=== PATIENT | male | born 1960 | race Caucasian/White ===

== ENCOUNTER 2024-05-26 14:22 | Outpatient (CLI) | payer BC, SELFPAY ==
--- NOTE | 2024-05-26 15:00 | CRLHL7_ITS ---
For Patients: As a result of the Century Cures Act, medical imaging exams and procedure reports are released immediately into your electronic medical record. You may view this report before your referring provider. If you have questions, please contact your health care provider. Indication: Obstruction. Frequent sinusitis. Headaches. Technique: Noncontrast axial CT of the paranasal sinuses with coronal reformats are provided. No comparisons. Findings: The visualized paranasal sinuses are clear. The ostiomeatal complexes are patent bilaterally. Prominent left-sided lev bullosa. The visualized intraorbital contents appear within normal limits. Moderate rightward nasal septal deviation with small bony spur contacting the right inferior turbinate. Impression: 1. Moderate rightward nasal septal deviation with bony spur contacting the inferior right turbinate. 2. Otherwise, unremarkable CT of the paranasal sinuses. Please note that all CT scans at this facility use dose modulation, iterative reconstruction, and/or weight-based dosing when appropriate to reduce radiation dose to as low as reasonably achievable. Dictated by Bret Cast MD @ 05/26/2024 4:52:31 PM (Electronically Signed)
== END 2024-05-26 14:23 | disposition home or self-care (01) ==
LOC: CT 14:22
PROVIDERS: PCP Nurse Practitioner Family; Visit Provider Otolaryngology
DX: J32.9 Chronic sinusitis, unspecified (principal); J34.2 Deviated nasal septum; R51.9 Headache, unspecified
CPT/HCPCS: 70486

== ENCOUNTER 2024-07-22 09:21 | Day surgery (SDC) | payer BC, SELFPAY ==
[2024-07-22] VITALS (13 sets, daily range): BP systolic 101–138; BP diastolic 60–82; PULSE 89–98; RESP 16; TEMP 36.3–36.6; O2SAT 90–97; BMI 31.5
[2024-07-22] MEDS: SODIUM CHLORIDE 0.9 % (FLUSH) 10 ML SYRINGE IVF (10:10)
[2024-07-22] MEDS: OXYMETAZOLINE 0.05% NASAL SPRAY 2 SPRAY NOSTRIL-B (10:13)
--- NOTE | 2024-07-22 10:42 | W.ANESCHARGE ---
Anesthesia Charges Start Date/Time Anesthesia Start Date: 07/22/24 Anesthesia Start Time: 10:55 Stop Date/Time Anesthesia Stop Date: 07/22/24 Anesthesia Stop Time: 11:36
[2024-07-22] MEDS: LACTATED RINGERS 500 ML 500 ML IV (11:00)
[2024-07-22] MEDS: COCAINE HCL 4 % 4 ML SOLUTION NOSTRIL-B (11:05)
[2024-07-22] MEDS: BUPIVACAINE 0.5%/EPINEPHRINE 0.9 MG (30.9 ML) INJECTION (11:19)
[2024-07-22] MEDS: MUPIROCIN 1 GM PACKET 1 APPLIC TOPICAL (11:20)
[2024-07-22] MEDS: AYR SALINE NASAL GEL 1 APPLIC NOSTRIL-B (11:20)
[2024-07-22] MEDS: LACTATED RINGERS 500 ML 500 ML 100 ML IV (11:53)
--- NOTE | 2024-07-22 11:54 | W.ANESCHARGE ---
Anesthesia Charges Start Date/Time Anesthesia Start Date: 07/22/24 Anesthesia Start Time: 10:55 Stop Date/Time Anesthesia Stop Date: 07/22/24 Anesthesia Stop Time: 11:36
[2024-07-22] MEDS: ACETAMINOPHEN 325 MG TABLET PO (12:45)
--- NOTE | 2024-07-22 13:09 | W.PM.ENTPROC ---
Procedure Note Date of procedure: 07/22/24 Procedure: Preop diagnosis nasal obstruction, deviated septum, left middle turbinate lev bullosa, nasal headache, inferior turbinate hypertrophy bilateral Pull postop diagnosis same Procedure nasal septoplasty, endoscopic partial resection left middle turbinate lev bullosa, submucous partial resection inferior turbinates bilateral Under general endotracheal anesthesia patient was prepped draped usual fashion nose decongested injected. The lev was visualized indirectly or directly am sorry with a 0 degree scope incised along its inferior aspect with a 15 blade an incision completed with the turbinate scissors. No bone was resected but the lev was then crushed with the [place] forceps. A stab incision was made in the anterior of the right inferior turbinate and a tunnel created with a Noemi dissector. A conservative anterior submucous resection was performed the Coblation was used to cauterize intramurally along the inferior 10%. This was repeated on the left side in identical fashion. A right hemitransfixion incision was made left anterior and posterior tunnels were created without difficulty. A vertical incision was made through the cartilage anterior to the bone and the right posterior tunnel created. The posterior deflected portions of septum were resected a large piece of bone trimmed returned to intraseptal space. Silastic stents were secured with 3-0 nylon and Merocel packing placed in each side of the nose. The patient procedure well was taken recovery in satisfactory condition blood loss 20 mL. Surgeon: Jerome Santo MD
== END 2024-07-22 13:35 | disposition home or self-care (01) ==
LOC: OR 09:22
PROVIDERS: PCP Nurse Practitioner Family; Visit Provider Otolaryngology
PROC: (CPT 31231; principal; 2024-07-22 11:00)
DX: J34.2 Deviated nasal septum (principal); J34.3 Hypertrophy of nasal turbinates; R51.9 Headache, unspecified; E11.9 Type 2 diabetes mellitus without complications; I10 Essential (primary) hypertension
CPT/HCPCS: 30520; 30140; 00160; 82962; A9270; J0330; J1100; J2250; J2405; J2704; J3010; J3490; J7120